=== PATIENT | male | born 1950 | race Caucasian/White ===

== ENCOUNTER 2020-11-26 13:43 | Emergency (ER) | payer MEDICARE ==
[~2020-11-26] VITALS: Ht 188 cm; Wt 97.0 kg
[2020-11-26] MEDS ORDERED: ASPIRIN81 MG PO (14:05)
[2020-11-26] MEDS ORDERED: LIPITOR40 M1 PO (14:05)
[2020-11-26] MEDS ORDERED: GLIPIZIDE5 MG PO (14:05)
[2020-11-26] MEDS ORDERED: METFORMIN HCL1000 MG PO (14:06)
[2020-11-26] MEDS ORDERED: OMEPRAZOLE DR20 MG (14:06)
[2020-11-26] MEDS ORDERED: LOSARTAN POTASS50 MG PO (14:06)
[2020-11-26] MEDS ORDERED: LYRICA100 MG PO (14:06)
[2020-11-26] MEDS ORDERED: CITALOPRAM20 M1 PO (14:07)
[2020-11-26 14:35] LABS: HEMOGLOBIN 12.9 g/dl (14.0-18.0); IMMATURE GRANULOCYTES 0.3 % (0.0-5.0); MEAN CELL VOLUME 82.6 fL CALC (80.0-100.0); MEAN CORPUSCULAR HGB CONC 33.9 g/dL CAL (32.0-36.0); NEUT# 7.43 thou/uL (1.82-7.42); RED BLOOD COUNT 4.6 mill/uL (4.70-6.10); RED CELL DISTRI WIDTH 14.2 % (11.5-15.5)
[2020-11-26 14:47] LABS: ALBUMIN 4.6 g/dL (3.2-5.0); ALKALINE PHOSPHATASE 51 u/l (38-126); ANION GAP 14 (6-22 (CALC)); BUN 11 mg/dL (8-23); BUN/CREATININE RATIO 14 (12-20 (CALC)); CARBON DIOXIDE 25 mmol/l (22-30); CHLORIDE 104 mmol/l (95-108); CREATININE 0.8 mg/dL (0.7-1.3); GFR > 60 ML/MIN (>=60 (CALC)); GFR FOR AFR.AMER. > 60 ML/MIN (>=60 (CALC)); POTASSIUM 3.1 mmol/l (3.5-5.1); SGOT/AST 20 u/l (19-48); SODIUM 140 mmol/l (137-146); TOTAL PROTEIN 7.4 g/dL (6.3-8.2)
[2020-11-26 15:13] LABS: URINE BILIRUBIN - DIPSTICK NEGATIVE (NEGATIVE); URINE BLOOD DIPSTICK SMALL (NEGATIVE); URINE COLOR YELLOW; URINE GLUCOSE - DIPSTICK 100 mg/dL (NEGATIVE); URINE KETONE NEGATIVE (NEGATIVE); URINE LEUK ESTERASE NEGATIVE (NEGATIVE); URINE NITRITE - DIPSTICK NEGATIVE (Negative); URINE PROTEIN - DIPSTICK TRACE mg/dL (NEG-TRACE); URINE SPECIFIC GRAVITY 1.025; URINE UROBILINOGEN - DIPSTICK 0.2 E.U./dL (0.2)
[2020-11-26 15:20] LABS: URINE RBC 0-2 RBC/hpf (0-5)
[2020-11-26 16:15] VITALS: BP 171/82
== END 2020-11-26 16:24 | disposition home or self-care (01) ==
LOC: ED 13:43
DX: I10 Essential (primary) hypertension (principal); F43.9 Reaction to severe stress, unspecified; E87.6 Hypokalemia; E11.9 Type 2 diabetes mellitus without complications; Z86.73 Personal history of transient ischemic attack (TIA), and cerebral infarction without residual deficits; Z79.84 Long term (current) use of oral hypoglycemic drugs; Z20.822 Contact with and (suspected) exposure to COVID-19